=== PATIENT | female | born 1985 | race Caucasian/White ===

== ENCOUNTER 2024-03-03 06:34 | Emergency (ER) | payer BC, SELFPAY ==
[2024-03-03 06:37] VITALS: BP 115/78; PULSE 97; TEMP 36.4; O2SAT 99; BMI 26.2
--- NOTE | 2024-03-03 06:46 | US_ITS ---
[address] [address] Patient Name: ELIER WHIPPLE MRN: [id number] date: 1985 Sex: F Assigned Patient Location: ER Current Patient Location: .[facility] Accession/Order Number: [id number] Exam Date: 03/03/2024 07:05 Report Date: 03/03/2024 07:42 At the request of: RADHA AKINS Procedure: US pelvis transvaginal EXAMINATION: US pelvis transvaginal HISTORY: pain, right, r/o torsion COMPARISON: No relevant comparison available. TECHNIQUE: Transabdominal and/or transvaginal sonographic examination was performed as indicated by examination type. FINDINGS: UTERUS: Normal size and appearance. Uterus size: 8.9 x 4.1 x 5.0 cm ENDOMETRIUM: Normal homogeneous appearance. Endometrial thickness: 10 mm RIGHT OVARY: Normal size and appearance. Duplex Doppler demonstrates normal arterial and venous waveform and flow; resistive index 0.4. Ovary size: 3.8 x 2.4 x 1.8 cm LEFT OVARY: Oophorectomy. No suspicious adnexal findings. CUL-DE-SAC: Unremarkable. No significant free fluid. BLADDER: Unremarkable. OTHER: None. US/US pelvis transvaginal IMPRESSION: 1. Unremarkable uterus and right ovary. No evidence of torsion. 2. Prior left oophorectomy. Electronically authenticated by: DENISSE PRINCE Date: 03/03/2024 07:42
--- NOTE | 2024-03-03 06:48 | ED_ITS ---
HPI HPI - General Adult General Chief complaint: Abdominal Pain Stated complaint: RT FLANK PAIN Time Seen by Provider: 03/03/24 06:35 Source: patient Mode of arrival: walk-in Limitations: no limitations History of Present Illness HPI narrative: 38-year-old female to the emergency department chief complaint of right sided pelvic pain. She reports a very severe right-sided pelvic pain started while she was at work. She has a history of endometriosis that usually causes her discomfort during her menstrual cycle. Last period was 2 weeks ago however. This pain came on suddenly. Is been unremitting. She denies any dysuria, urgency, hematuria. No vaginal bleeding or discharge. She reports normal bowel movements. No history of kidney stones. She reports left-sided salpingo-oopho rectomy. Status post tubal ligation on the right. Related Data Allergies Allergy/AdvReac Type Severity Reaction Status Date / Time No Known Drug Allergies Allergy Verified 03/03/24 06:40 Opioid HPI Opioid Management Most Recent Opioid Data: No Data to Display Review of Systems ROS Status of ROS 10 or more systems reviewed and unremark able except as noted in history and below Exam Narrative Exam Narrative: VITALS: I have reviewed the triage vital signs. GENERAL: Well developed, well appearing adult in no acute distress. NEURO: Alert and oriented. Moves all extremities. Face is symmetric and expressive. EYES: PERRL. No scleral icterus or conjunctival injection. No discharge. HENT: Normocephalic, atraumatic. Hearing is grossly intact. Nares grossly patent and without discharge. Mucous membranes moist. NECK: No JVD. Patient moves neck without restriction. CARDIO: Rhythm regular. Normal rate. No murmur, rub, or gallop. Pulses equal bilaterally in the upper and lower extremity. No lower extremity edema. PULM: Lungs clear to auscultation in all guido. No wheezes, rales, or rhonchi. No conversational dyspnea. No splinting, stridor, or accessory muscle use. GI/: Abdomen is soft. Right-sided pelvic tenderness. Normoactive bowel sounds. EXTREMITIES: Symmetric muscle bulk. No joint swelling. No clubbing, cyanosis, or deformity. SKIN: Warm and dry. Normal turgor. No rash or lesions appreciated. PSYCH: Mood, affect, and interaction is appropriate to the setting. Constitutional Vital Signs, click to edit/add: Last Vital Signs Temp 97.6 F 03/03/24 06:37 Pulse 97 H 03/03/24 06:37 Resp 16 03/03/24 06:37 BP 115/78 03/03/24 06:37 Pulse Ox 99 03/03/24 06:37 O2 Del Method Room Air 03/03/24 06:37 Course Vital Signs Vital signs: Vital Signs Temperature 97.6 F 03/03/24 06:37 Pulse Rate 97 H 03/03/24 06:37 Respiratory Rate 16 03/03/24 06:37 Blood Pressure 115/78 03/03/24 06:37 Pulse Oximetry 99 03/03/24 06:37 Oxygen Delivery Method Room Air 03/03/24 06:37 Temperature 97.6 F 03/03/24 06:37 Pulse Rate 97 H 03/03/24 06:37 Respiratory Rate 16 03/03/24 06:37 Blood Pressure 115/78 03/03/24 06:37 Pulse Oximetry 99 03/03/24 06:37 Oxygen Delivery Method Room Air 03/03/24 06:37 Medical Decision Making MDM Narrative Medical decision making narrative: 38-year-old female to the emergency department chief complaint of right sided pelvic pain. Vital stable, the patient is afebrile. Moderate tenderness on exam. Toradol for discomfort. Ultrasound is ordered to evaluate for torsion. Patient agrees with this plan. Care was signed out to Dr. Couch with diagnostic workup and disposition pending. Working diagnosis: Pelvic pain Discharge Plan Discharge Chief Complaint: Abdominal Pain Clinical Impression: Pelvic pain Patient Disposition: Still a Patient Print Language: Ukrainian Referrals: Physician,Non-Staff, MD [Primary Care Provider] - 1 week
[2024-03-03 07:11] LABS: Bilirubin Urine NEGATIVE (NEGATIVE); Blood Urine NEGATIVE (NEGATIVE); Clarity Urine CLEAR (CLEAR); Color Urine LT. YELLOW (YELLOW); Glucose Urine UA NEGATIVE (NEGATIVE); Ketones Urine NEGATIVE (NEGATIVE); Leukocyte Esterase Urine NEGATIVE (NEGATIVE); Nitrite Urine NEGATIVE (NEGATIVE); Protein Urine NEGATIVE (NEG/TRACE); Specific Gravity Urine 1.015 (1.005-1.025); Urobilinogen Urine 0.2 EU/dL (0.2-1.0); pH Urine 6.5 (5.0-9.0)
[2024-03-03 07:22] LABS: HCG Qualitative Urine* NEGATIVE (NEGATIVE); Internal Control Within Normal Limits
[2024-03-03 07:26] LABS: Urine Microscopic Indicated NO
[2024-03-03] MEDS: KETOROLAC TROMETHAMINE 30 MG/ML VIAL 15 MG IVP (07:26)
[2024-03-03] MEDS: 0.9 % SODIUM CHLORIDE 1,000 ML 999 ML IV (07:27)
[2024-03-03 07:30] LABS: Basophils Percent Auto 0.7 % (0.2-2.0); Eosinophils Absolute Auto 0.1 10^3/uL (0.0-0.7); Hematocrit 37.3 % (36.0-48.0); Hemoglobin 12.3 g/dL (12.0-16.0); Immature Granulocytes Abs Auto 0.02 10^3/uL (0.00-0.03); Immature Granulocytes Pct Auto 0.3 % (0.0-0.5); Lymphocytes Absolute Auto 1.8 10^3/uL (1.2-3.8); Lymphocytes Percent Auto 29.5 % (20.5-60.0); Mean Platelet Volume 9.3 fL (9.5-13.5); Monocytes Absolute Auto 0.3 10^3/uL (0.3-0.8); Monocytes Percent Auto 5.3 % (1.7-12.0); Neutrophils Absolute Auto 3.8 10^3/uL (1.4-6.5); Neutrophils Percent Auto 62.2 % (43.0-75.0); Platelet Count 228 10^3/uL (150-450); Red Blood Count 3.97 10^6/uL (4.20-5.40); White Blood Count 6.1 10^3/uL (4.0-11.0)
[2024-03-03 07:35] LABS: Anion Gap 14.1; BUN Creatinine Ratio 14.5; Calcium 8.7 mg/dL (8.5-10.1); Carbon Dioxide 26.7 mmol/L (21.0-32.0); Chloride 103 mmol/L (98-107); Estimated GFR (African America >60 (>=60); Estimated GFR (Non-African Ame >60 (>=60); Glucose 96 mg/dL (74-106); Potassium 3.8 mmol/L (3.5-5.1); Sodium 140 mmol/L (136-145)
[2024-03-03] MEDS: ONDANSETRON PF 4 MG/2 ML VIAL IV (07:42)
[2024-03-03] MEDS: FAMOTIDINE/PF 20 MG/2 ML VIAL IV (07:42)
== END 2024-03-03 08:35 | disposition home or self-care (01) ==
PROVIDERS: Emergency Provider Student in an Organized Health Care Education/Training Program
DX: R10.2 Pelvic and perineal pain (principal); Z90.721 Acquired absence of ovaries, unilateral; Z90.79 Acquired absence of other genital organ(s)
CPT/HCPCS: 36415; 76830; 80048; 81003; 84703; 85025; 96374; 96375; 99284; J1885; J2405